=== PATIENT | female | born 1980 | race Hispanic/Latino ===

== ENCOUNTER 2024-09-10 19:33 | Emergency (ER) | payer MEDICAID ==
[2024-09-10] MEDS: Ondansetron 4 MG/2 ML SDV IVPUSH ONE (20:01)
[2024-09-10] MEDS: Sodium Chloride 0.9% 10 ML Syringe FLUSH PRN (20:02)
[2024-09-10] MEDS: Sodium Chloride 0.9% 1,000 ML IV ONE (20:04)
[2024-09-10] MEDS: Ondansetron 4 MG/2 ML SDV ONE (20:04)
== END 2024-09-10 23:14 | disposition home or self-care (01) ==
LOC: JD.ED 19:33
DX: S09.90XA Unspecified injury of head, initial encounter (principal); M25.511 Pain in right shoulder; E66.9 Obesity, unspecified; E03.9 Hypothyroidism, unspecified; Z79.899 Other long term (current) drug therapy; Z79.890 Hormone replacement therapy; Z86.16 Personal history of COVID-19; W01.0XXA Fall on same level from slipping, tripping and stumbling without subsequent striking against object, initial encounter
CPT/HCPCS: 70450; 71045; 72125; 73030; 73130; 73590; 73630; 96361; 96374; 99284; J2405; J7030